=== PATIENT | male | born 1990 | race Caucasian/White ===

== ENCOUNTER 2020-10-14 17:27 | Emergency (ER) | payer OTHER ==
[~2020-10-14 17:27] MED LIST: IBUPROFEN800 MG PO
[2020-10-14] MEDS ORDERED: ERYTHROMYCIN O3.5 GM OU (19:08)
[2020-10-14] MEDS ORDERED: LODINE CAP 300300 MG PO (19:08)
[2020-10-14] MEDS ORDERED: CEPHALEXIN500 MG PO (19:08)
== END 2020-10-14 19:25 | disposition home or self-care (01) ==
LOC: ER1 17:27
DX: H16.9 Unspecified keratitis (principal); L03.019 Cellulitis of unspecified finger
CPT/HCPCS: 99283

== ENCOUNTER 2021-04-10 01:50 | Emergency (ER) | payer OTHER ==
[~2021-04-10 01:50] MED LIST changes: +CEPHALEXIN500 MG PO; +ERYTHROMYCIN O3.5 GM OU; +LODINE CAP 300300 MG PO
[2021-04-10 02:41] LABS: HEMOGLOBIN 16.3 gm/dl (14.0-17.5); RED BLOOD COUNT 5.44 M/UL (4.20-5.50); WHITE BLOOD COUNT 9.1 K/UL (4.5-11.0)
[2021-04-10 03:30] LABS: BUN/CREATININE RATIO 11 (0-10)
== END 2021-04-10 04:15 | disposition home or self-care (01) ==
LOC: ER1 01:50
PROVIDERS: Emergency Medicine
DX: R07.2 Precordial pain (principal)
CPT/HCPCS: 71045; 80053; 82550; 82553; 83874; 84484; 85025; 93005; 99285